=== PATIENT | male | born 1950 | race Caucasian/White ===

== ENCOUNTER 2017-03-05 09:30 | Emergency (ER) | payer MEDICARE, OTHER ==
[~2017-03-05] VITALS: Ht 180.3 cm; Wt 69.4 kg
[~2017-03-05 09:30] MED LIST: BACTRIM DS TAB1 EACH PO; CARBAMAZEPINE400 M1 PO; GENTAMICIN SUL3.5 GM OS; HYDROCHLOROTH12.5 M1 PO; HYDROCHLOROTH12.5 MG PO; HYDROCODONE-AC473 ML PO; LORAZEPAM1 MG PO; LORTAB 10 MG-3473 ML PT; METOPROLOL SUCC50 MG PO; METOPROLOL TART25 MG PT; METOPROLOL TART50 MG PO; MULTI VITAMIN1 EACH PT; NEXIUM40 MG PT; ONDANSETRON ODT4 MG PO; TEGRETOL PO; TEGRETOL200 MG PO; TEGRETOL200 MG PT; VITAMIN D400 UNI1 PT; [UNRECOGNIZED DRUG - OTHER]
[2017-03-05] MEDS ORDERED: NORCO 10-325 T1 EACH PO (10:32)
[2017-03-05] MEDS ORDERED: BACTRIM DS TAB1 EACH PO (10:32)
== END 2017-03-05 11:00 | disposition home or self-care (01) ==
LOC: ED 09:30
PROC: 0T9B30Z Drainage of Bladder with Drainage Device, Percutaneous Approach (ICD-10-PCS; principal; 2017-03-05)
DX: N39.0 Urinary tract infection, site not specified (principal); N41.9 Inflammatory disease of prostate, unspecified; G40.909 Epilepsy, unspecified, not intractable, without status epilepticus; Z91.041 Radiographic dye allergy status; Z91.013 Allergy to seafood; Z88.0 Allergy status to penicillin; Z91.018 Allergy to other foods; Z79.899 Other long term (current) drug therapy
CPT/HCPCS: 51702; 81001; 87077; 87088; 87181; 87184; 99283

== ENCOUNTER 2017-03-23 08:25 | Emergency (ER) | payer MEDICARE, OTHER ==
[~2017-03-23] VITALS: Ht 180.3 cm; Wt 69.4 kg
[~2017-03-23 08:25] MED LIST changes: +NORCO 10-325 T1 EACH PO
[2017-03-23] MEDS ORDERED: PYRIDIUM200 MG PO (11:14)
[2017-03-23] MEDS ORDERED: FLOMAX0.4 MG PO (11:14)
[2017-03-23] MEDS ORDERED: SULFAMETHOXAZO473 M1 PO (11:14)
== END 2017-03-23 11:34 | disposition home or self-care (01) ==
LOC: ED 08:25
PROC: 4A0D7LZ Measurement of Urinary Volume, Via Natural or Artificial Opening (ICD-10-PCS; principal; 2017-03-23)
DX: N39.0 Urinary tract infection, site not specified (principal); R56.9 Unspecified convulsions; Z91.041 Radiographic dye allergy status; Z91.018 Allergy to other foods; Z88.0 Allergy status to penicillin; Z91.013 Allergy to seafood; Z79.899 Other long term (current) drug therapy
CPT/HCPCS: 51798; 81001; 87088; 99283

== ENCOUNTER 2017-05-09 19:25 | Observation (INO) | payer MEDICARE, OTHER ==
[~2017-05-09] VITALS: Ht 180.3 cm; Wt 51.7 kg
[~2017-05-09 19:25] MED LIST changes: +FLOMAX0.4 MG PO; +PYRIDIUM200 MG PO; +SULFAMETHOXAZO473 M1 PO
[2017-05-10] MEDS ORDERED: MEGESTROL400 MG/10 PO (09:59)
[2017-05-10] MEDS ORDERED: CARBAMAZEPINE200 MG PO (09:59)
[2017-05-10] MEDS ORDERED: PEPTO-BISM262 MG/15 PO (10:00)
[2017-05-10] MEDS ORDERED: VICKS DAYQU5 MG/5 ML PO (10:01)
--- NOTE | 2017-05-12 07:32 | CONS ---
[facility] [address], [place] [address] Signed DATE OF CONSULTATION: 05/10/2017 CHIEF COMPLAINT: Generalized abdominal pain with nausea. 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 He underwent neoadjuvant chemo and radiation therapy followed by a laparoscopic esophagectomy and gastric pull-through. Dr. Jerson Burk was the Surgeon. Unfortunately, he had a leak from the gastric sleeve, needed intercostal muscle flap. He spent some time at the [facility] a [facility] in [place]. He eventually made his way home to [place], [place]. He still resides in his trailer by himself, but his brother lives in a trailer in the [place] [facility] [place]. I had seen Mirella in January 2016 for an upper endoscopy and the anastomosis was widely patent at 22 cm. However, there was food in his gastric sleeve. When I looked at the pylorus, it seemed to be fine. I did not see any mechanical disruption to the pylorus. Normally, these patients will have a pyloroplasty at the time of surgery. Of course, his duodenum is straight and then I went down the duodenum 10 or 15 cm, and it was fine. In the meantime, Mirella has continued to lose weight. He told me today that he is down from 180 pounds to about almost 100 pounds. He said even ice-cream bothers him. He said he can chew the food and swallow out fine, but then later he feels full, and nauseated. Unfortunately, he is not the best historian and is not the most proactive person. His primary care provider had retired, and he established with a new primary care provider and then about a week ago, he was then to have a Hayes catheter placed for urinary retention had removed and again had urinary retention 3 days ago and had to have the ER replace his urine catheter. The urine seems to be clear and his urine culture grew out Aerococcus urinae. It has multiple sensitivities including the Rocephin and the Levaquin. However, he came back last night with after having eaten corn beef hash, which he said was a mistake, he now feels generalized abdominal pain and nauseated. In the emergency room, his exam was empirically concerning and his white count was normal at 9.6. However, the urine specific gravity was high at 1.035 with protein, 30 red cells, 15 white cells, 2+ bacteria, but also some squamous cells. Consequently, he was given a dose of Rocephin last night. A CT scan and pelvis was performed and he has dilated loops of proximal small bowel. Of course extending clear up into the chest as one would expect, appears to be some fluid in his abdomen low stranding, but just it is important he has a 10 x 5 mm kidney stone at the right UVJ with hydronephrosis and he has some patchy bilateral lower lobe disease on his CT scan concerning for possible pneumonia, but he told me today he has not vomited. He has not aspirated any food. I have been asked to admit him last night as a General surgeon on-call. We admit him overnight and gave him IV fluids. This morning, he seems to be doing fine, but he certainly is cachectic. MEDICATIONS: Electronically Signed By: KANG ANDERSON MD 05/12/17 0732 PATIENT NAME: MIRELLA KNAPP CONSULTATION DATE OF : 54 PHYSICIAN: KANG ANDERSON MD REPORT #: [id number] REPORT IS CONFIDENTIAL AND NOT TO BE RELEASED WITHOUT AUTHORIZATION [address] [address] Signed Sertraline, Tegretol, Flomax, [place] 10 mg, multivitamin, and Zofran. PAST MEDICAL HISTORY: Includes periodontal gum disease, hypertension, esophageal cancer in 2013, hyperlipidemia, vitamin D deficiency, hypogonadism, depression, anxiety, conversion disorder with seizures. PAST SURGICAL HISTORY: Includes his orchiectomy from a trauma, right inguinal hernia repair, cholecystectomy in 2011. His laparoscopic gastrectomy with gastric pull-through with PEG tube removal and placement of a J-tube with Dr. Uri Anders and Dr. Burk in November 2014. He had an upper endoscopy in January 2014 and again in January 2016. His PEG tube got placed in 2013 and he had incision and drainage of abscess of the abdominal wall in 2014. SOCIAL HISTORY: He lives in a trailer by himself, but his brother lives in the same trailer park. He still drives. He prefers the [facility]. He does not drink or smoke. He is disabled from a seizure disorder. He is single and has 1 child. Min Dixon is his primary care provider. Dr. Anshul Ayon is his Radiation Oncologist. Dr. Son Post is medical oncologist. Dr. Jerson Burk is his Surgeon at [facility] and [facility]. ALLERGIES: Fish and fish products, iodine, penicillin and tomatoes. FAMILY HISTORY: His mother had some type of cancer. There has been no heart disease. No abnormal reaction to anesthesia. REVIEW OF SYSTEMS: He had 10 systems reviewed and on this occasion, he is clearly cachectic. He has lost most of his muscle mass. He said he has been at least a year that he has been having trouble and for reasons that are not clear. He did return after his last endoscopy, although he was asked to for consideration of a barium swallow. PHYSICAL EXAMINATION: VITAL SIGNS: Blood pressure is 96/66, heart rate 77, respiratory rate 14, temperature is 98.5, he is 95% on room air. He is 5 feet 11 inches at 51 kg. He used to be 180 pounds. GENERAL: Mirella is a 66-year-old gentleman, lying supine in his hospital bed. He is obviously cachectic. He does not appear in any acute distress. He is not nauseated, or retching currently. He has no shortness of breath or increased work of breathing. LUNGS: Generally clear to auscultation. ABDOMEN: Actually scaphoid and generally soft. He certainly does not have any Electronically Signed By: KANG ANDERSON MD 05/12/17 0732 PATIENT NAME: MIRELLA KNAPP CONSULTATION DATE OF : 54 PHYSICIAN: KANG ANDERSON MD REPORT #: [id number] REPORT IS CONFIDENTIAL AND NOT TO BE RELEASED WITHOUT AUTHORIZATION [facility] [address], [place] [address] Signed tenderness or peritoneal signs or symptoms. LABORATORY DATA: His white blood cell count is 9.6, hemoglobin 12, neutrophils 75, and platelets 491. BUN 15 and creatinine 0.8, his alkaline phosphatase 171, albumin is 2.6, lipase 148. Urine specific gravity is up at 1.035 with protein 100, red blood cells 30, white blood cells 15, 2+ bacteria, and squamous cells and a urine culture from a few days ago that grew out Aerococcus urinae sensitive to multiple drugs including the Rocephin and his Levaquin. RADIOGRAPHIC STUDIES: CT scan and pelvis is reviewed. I can see some patchy areas in the lower lobes of his lungs. He clearly has a gastric pull-up into his chest full of fluid down through much of his proximal small bowel, there was a little bit of sizable stranding, he then has a 10 x 5 mm stone at the right UVJ with some hydronephrosis. ASSESSMENT AND PLAN: Mirella is a 66-year-old gentleman, who presents as above. Currently, we are going to check in with [facility] to see if we can have him transferred. Kang Anderson MD [facility] /[id number] cc: RADHA Rodriguez Electronically Signed By: KANG ANDERSON MD 05/12/17 0732 PATIENT NAME: MIRELLA KNAPP CONSULTATION DATE OF : 54 PHYSICIAN: KANG ANDERSON MD REPORT #: [id number] REPORT IS CONFIDENTIAL AND NOT TO BE RELEASED WITHOUT AUTHORIZATION
== END 2017-05-10 13:12 ==
LOC: ED 19:25 → MS 19:27 → ED 23:45 → MS 05-10 13:12
PROVIDERS: ADMIT Colon & Rectal Surgery
DX: K56.609 Unspecified intestinal obstruction, unspecified as to partial versus complete obstruction (principal); Z87.891 Personal history of nicotine dependence; Z85.01 Personal history of malignant neoplasm of esophagus; I10 Essential (primary) hypertension; E78.00 Pure hypercholesterolemia, unspecified; Z92.21 Personal history of antineoplastic chemotherapy; Z92.3 Personal history of irradiation; R64 Cachexia; N13.2 Hydronephrosis with renal and ureteral calculous obstruction; E55.9 Vitamin D deficiency, unspecified; F32.9 Major depressive disorder, single episode, unspecified; F41.8 Other specified anxiety disorders; F44.5 Conversion disorder with seizures or convulsions; Z79.899 Other long term (current) drug therapy
CPT/HCPCS: 74176; 80053; 80156; 81001; 83690; 85025; 87077; 87088; 87181; 87184; 96361; 96372; 96374; 96375; 99285; G0378; J0696; J1170; J1644; J1956; J2270; J2405; J7030; J7120

== ENCOUNTER 2017-06-10 11:59 | Emergency (ER) | payer MEDICARE, OTHER ==
[~2017-06-10] VITALS: Ht 180.3 cm; Wt 51.7 kg
[~2017-06-10 11:59] MED LIST changes: +CARBAMAZEPINE200 MG PO; +MEGESTROL400 MG/10 PO; +PEPTO-BISM262 MG/15 PO; +VICKS DAYQU5 MG/5 ML PO
[2017-06-10] MEDS ORDERED: BENADRYL25 MG PO (12:14)
== END 2017-06-10 13:15 | disposition home or self-care (01) ==
LOC: ED 11:59
DX: T78.40XA Allergy, unspecified, initial encounter (principal); R60.0 Localized edema; I10 Essential (primary) hypertension; C15.9 Malignant neoplasm of esophagus, unspecified; K21.9 Gastro-esophageal reflux disease without esophagitis; E78.00 Pure hypercholesterolemia, unspecified; Z87.891 Personal history of nicotine dependence; Z88.8 Allergy status to other drugs, medicaments and biological substances; Z91.041 Radiographic dye allergy status; Z91.013 Allergy to seafood; Z88.0 Allergy status to penicillin; Z91.018 Allergy to other foods; Z79.899 Other long term (current) drug therapy
CPT/HCPCS: 96372; 99283; J1200

== ENCOUNTER 2017-06-18 20:24 | Emergency (ER) | payer MEDICARE, OTHER ==
[~2017-06-18] VITALS: Ht 180.3 cm; Wt 51.7 kg
[~2017-06-18 20:24] MED LIST changes: +BENADRYL25 MG PO
--- NOTE | 2017-06-19 20:30 | EKG ---
[facility] [address] [facility] [place] [address] Signed Normal sinus rhythm Normal ECG No previous ECGs available Confirmed by JOVAN JAVIER MD ([id number]) on 06/19/2017 8:30:07 PM Electronically Signed By: JOVAN JAVIER MD 06/19/17 2030 PATIENT NAME: MIRELLA KNAPP Electrocardiogram DATE OF : 54 PHYSICIAN: JOVAN JAVIER MD REPORT #: [id number] REPORT IS CONFIDENTIAL AND NOT TO BE RELEASED WITHOUT AUTHORIZATION
--- NOTE | 2017-06-20 10:58 | NUR ---
RECEIVED A PHONE CALL FROM [employer] COL[employer]OR FOR [facility] [employer]. SHE STATES PATIENT WAS DISCHARGED FROM FACILITY LAST WEEK AND HE HAS CALLED AND HE IS FAILING AT HOME. HE IS HAVING MORE DIFFICULTY SWALLOWING, CANNOT GET ENOUGH FOOD IN, IS NOW SO WEAK HE CAN HARDLY GET OUT OF THE CHAIR. HE THINKS HE NEEDS TO RETURN TO FACILITY FOR MORE THERAPY. [place] HAS SENT ORDERS TO KAREN JEFFRIES WHO IS PATIENTS PCP, AT [facility]. SHE STATES SHE HAS TRIED CALLING THE CLINIC, BUT KAREN IS OUT OF THE OFFICE FOR THE NEXT FEW DAYS. SHE IS VERY WORRIED ABOUT THE PATIENT BEING HOME. I SPOKE WITH GLEN GARCIA AT THE CLINIC, SHE WAS ABLE TO GIVE ME THE ORDERS, BUT SHE CONFIRMED KAREN IS NOT IN. I SPOKE WITH DR JAVIER. HE REVIEWED THE CHARTS AND ORDERS. ORDERS WERE FINISHED AND SIGNED BY DR JAVIER FOR KAREN ROBERT. ORDERS WERE FAXED TO [facility] [employer] [facility], FAX CONFIRMATION RECEIVED.
== END 2017-06-18 23:19 | disposition home or self-care (01) ==
LOC: ED 20:24
DX: C15.9 Malignant neoplasm of esophagus, unspecified (principal); I10 Essential (primary) hypertension; K21.9 Gastro-esophageal reflux disease without esophagitis; E78.00 Pure hypercholesterolemia, unspecified; Z88.0 Allergy status to penicillin; Z88.8 Allergy status to other drugs, medicaments and biological substances; Z91.013 Allergy to seafood; Z91.041 Radiographic dye allergy status; Z91.018 Allergy to other foods; Z79.899 Other long term (current) drug therapy
CPT/HCPCS: 70490; 71045; 80053; 83735; 83880; 84484; 85025; 85379; 93005; 93010; 99284

== ENCOUNTER 2017-08-01 04:47 | Emergency (ER) | payer MEDICARE, OTHER ==
[~2017-08-01] VITALS: Ht 180.3 cm; Wt 47.2 kg
[2017-08-01] MEDS ORDERED: CEPHALEXIN500 MG PO (06:49)
== END 2017-08-01 07:40 | disposition home or self-care (01) ==
LOC: ED 04:47
PROC: 0T9B70Z Drainage of Bladder with Drainage Device, Via Natural or Artificial Opening (ICD-10-PCS; principal; 2017-08-01)
PROC: BT40ZZZ Ultrasonography of Bladder (ICD-10-PCS; principal; 2017-08-01)
DX: N39.0 Urinary tract infection, site not specified (principal); I10 Essential (primary) hypertension; Z91.041 Radiographic dye allergy status; Z88.8 Allergy status to other drugs, medicaments and biological substances; Z88.0 Allergy status to penicillin; Z91.013 Allergy to seafood; Z91.018 Allergy to other foods; Z79.899 Other long term (current) drug therapy
CPT/HCPCS: 51702; 51798; 81001; 87077; 87088; 87181; 87184; 99284